=== PATIENT | female | born 1985 | race Caucasian/White ===

== ENCOUNTER → 2019-07-07 | Outpatient (CLI) | payer BC ==
[~2019-07-07] MED LIST: ALBUTEROL SULFATE 0.083% NEB 2.5 MG/3 ML AMPUL NEB ONE
--- NOTE | 2019-07-07 16:47 | Pulmonary Function Test ---
Pulmonary Function Test Date of Procedure:: 07/07/19 INDICATION:: Dyspnea Referring Provider: SILVA Del Valle [employer]: Cyndee Griggs, COMMUNITY SERVICE OFFICER COORDINATOR - Report Spirometry: Spirometry: pre-FVC: 3.91 L 109% post-FVC: 4.02 L 112% pre-FEV:1 2.86 L 94% post-FEV1: 3.25 L 107% pre-FEV1/FVC %: 73 post-FEV1/FVC%: 81 predicted: 86 [id number]%: 2.12 L 59% [id number]%: 3.30 L 96% Impression: Mild obstructive ventilatory defect is confirmed by the decreased flow at the FEF 25-75% with response to bronchodilator therapy
== END ==
LOC: RT 07:27
PROVIDERS: ATTEND Physician Assistant
DX: J45.20 Mild intermittent asthma, uncomplicated (principal)
CPT/HCPCS: 94060

== ENCOUNTER → 2019-07-07 | Outpatient (CLI) | payer BC ==
--- NOTE | 2019-07-07 09:41 | RADIOLOGY REPORT (SQ) ---
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 TECHNIQUE: Dynamic and static man-scale images acquired of the thyroid gland. Selected additional c olor/power Doppler images recorded. All images stored to PACS. LIMITATIONS: None. FINDINGS: RIGHT LOBE: Normal size. Homogeneous echotexture. There is a 9.6 x 6.6 x 8.3 mm mainly h ypoechoic nodule. No calcifications. The lesion is slightly taller than wide. Borders are irregula r. LEFT LOBE: Normal size. Homogeneous echotexture. No cystic or solid masses. ISTHMUS: Normal size. Homogeneous echotexture. No cystic or solid masses. OTHER: No other significant finding. IMPRESSION: Approximately 10 mm TR 5 lesion. Based on current criteria FNA is recommended. TECHNICAL DOCUMENTATION: JOB ID: [id number] 2010 [employer]- All Rights Reserved Reading location - IP/workstation name: [email or web address] ELENA
== END ==
LOC: WI 08:07
PROVIDERS: ATTEND Physician Assistant
DX: D44.0 Neoplasm of uncertain behavior of thyroid gland (principal); J45.20 Mild intermittent asthma, uncomplicated
CPT/HCPCS: 76536

== ENCOUNTER → 2020-01-07 | Outpatient (CLI) | payer BC ==
--- NOTE | 2020-01-07 16:35 | RADIOLOGY REPORT (SQ) ---
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 Selected additional c olor/power Doppler images recorded. All images stored to PACS. LIMITATIONS: None. FINDINGS: RIGHT LOBE: Normal size. Mildly heterogeneous echotexture. Solid nodule previously descr ibed is slightly more echogenic on today's exam although the majority of the lesion is hypoechoic. S mall echogenic foci are demonstrated within the lesion. No significant change in size. The lesion m easures just under 10 mm in greatest diameter. LEFT LOBE: Normal size. Heterogeneous echotexture. No cystic or solid masses. ISTHMUS: Normal size. Homogeneous echotexture. No cystic or solid masses. OTHER: No other significant finding. IMPRESSION: Grossly stable solid nodule in the right lobe. This is hypoechoic with small hyperechoi c foci. Findings remain consistent with TR 5 lesion. The size is equivocal but there is been no sig nificant change from prior exam. Continued ultrasound surveillance is recommended. TECHNICAL DOCUMENTATION: JOB ID: [id number] 2010 [employer]- All Rights Reserved Reading location - IP/workstation name: [email or web address] ELENA
== END ==
LOC: RAD 15:30
PROVIDERS: ATTEND Physician Assistant
DX: D44.0 Neoplasm of uncertain behavior of thyroid gland (principal)
CPT/HCPCS: 76536